=== PATIENT | female | born 1985 ===

== ENCOUNTER 2020-04-05 02:54 | Emergency (ER) ==
--- NOTE | 2020-04-05 04:54 | ER ---
Nurse's Notes [facility] Name: Geraldine Sotelo Age: 34 yrs Sex: Female : 1985 Arrival Date: 04/05/2020 Time: 03:02 Bed 17 Private MD: Diagnosis: Laceration without foreign body of vagina and vulva Presentation: 04/05 03:18 Chief complaint: Patient states: pt reports vaginal bleeding after intercourse, was sg taking a shower and having bright red clots, reports lower abdominal pain, as well as feeling weak. Coronavirus screen: Patient denies a cough. Patient denies shortness of breath or difficulty breathing. Patient denies measured and/or subjective temperature greater than 100.4F prior to today's visit. Patient denies travel on a cruise ship or to a country the [facility] currently lists as an affected area. Patient denies contact with known and/or suspected case of COVID-19. Ebola Screen: Patient negative for fever greater than or equal to 101.5 degrees Fahrenheit, and additional compatible Ebola Virus Disease symptoms Patient denies exposure to infectious person. Patient denies travel to an Ebola-affected area in the 21 days before illness onset. No symptoms or risks identified at this time. No acute neurological deficit is noted. Initial Sepsis Screen: Does the patient meet any 2 criteria? No. Patient's initial sepsis screen is negative. Does the patient have a suspected source of infection? No. Patient's initial sepsis screen is negative. Risk Assessment: Do you want to hurt yourself or someone else? Patient reports no desire to harm self or others. Onset of symptoms was April 05, 2020. Care prior to arrival: None. Transition of care: patient was not received from another setting of care. 03:18 Method Of Arrival: Wheelchair sg 03:18 Acuity: PROSPRE 3 sg HEARING EXAMINER: 04:00 LMP 03/15/2020 mt2 Historical: - Allergies: 03:27 Aspirin; sg - Home Meds: 03:27 None [Active]; sg - PMHx: 03:27 None; sg - PSHx: 03:27 ; sg - Immunization history:: Adult Immunizations not up to date. - Social history:: Smoking status: Patient denies any tobacco usage or history of. - Family history:: not pertinent. Screenin:00 Abuse screen: Denies threats or abuse. Nutritional screening: No deficits noted. mt2 Tuberculosis screening: No symptoms or risk factors identified. Fall Risk None identified. Assessment: 03:13 Reassessment: pt adamant that he go to the exam room with the patient. is alert sg and oriented, is answering her own questions appropriately, educated pt and pt family that there is no visitors in the dept at this time, pt states they will not be seen in the emergency dept at this time. 04:00 Reassessment: Patient and/or family updated on plan of care and expected duration. Pain mt2 level reassessed. PATIENT AWAITING PELVIC EXAM. General: Appears uncomfortable, Behavior is cooperative. Pain: Complains of pain in pelvis Pain currently is 4 out of 10 on a pain scale. Neuro: No deficits noted. Cardiovascular: No deficits noted. Respiratory: No deficits noted. GI: No deficits noted. : Blood noted Reports vaginal bleeding that is with clots. EENT: No deficits noted. Derm: Wound noted pelvis. Musculoskeletal: No deficits noted. 05:00 Reassessment: Patient and/or family updated on plan of care and expected duration. Pain mt2 level reassessed. Patient states symptoms have improved. General: Appears comfortable, Behavior is cooperative. Vital Signs: 03:23 BP 111 / 69; Pulse 85; Resp 17 S; Temp 98.7(O); Pulse Ox 100% on R/A; Weight 74.84 kg mw2 (R); Height 5 ft. 3 in. (160.02 cm) (R); 04:30 BP 118 / 71; Pulse 71; Resp 16; Pulse Ox 97% ; Pain 4/10; mt2 05:00 BP 108 / 69; Pulse 75; Resp 16; Temp 98.0(O); Pulse Ox 97% on R/A; Pain 0/10; mt2 03:23 Body Mass Index 29.23 (74.84 kg, 160.02 cm) mw2 ED Course: 03:02 Patient arrived in ED. cl3 03:18 Arm band placed on. sg 03:20 Keri Parr RN is Primary Nurse. mt2 03:20 Triage completed. sg 03:50 Mert Gong MD is Attending Physician. oliver 04:00 Patient has correct armband on for positive identification. Placed in gown. Bed in low mt2 position. Call light in reach. Side rails up X 1. 04:50 Assist provider with laceration repair on groin using sutures. Set up tray. Performed mt2 by Mert Gong MD Patient tolerated Assist provider with pelvic exam: Set up pelvic tray. Performed by Mert Gong MD Vaginal packing inserted. Patient did not have IV access during this emergency room visit. 04:53 Martine Garcia MD is Referral Physician. [facility] Administered Medications: 04:50 Drug: Lidocaine (1 %) 5 mg {Note: administered by md.} Route: Infiltration; mt2 05:39 CANCELLED ( cancel): NS 0.9% 1000 ml IV at 1 bolus Per protocol; 1000 mL bolus mt2 Outcome: 04:54 Discharge ordered by . [facility] 05:10 Discharged to home ambulatory. mt2 05:10 Condition: good 05:10 Discharge instructions given to patient, Instructed on discharge instructions, follow up and referral plans. medication usage, safe sex practices, safety practices, wound care, Demonstrated understanding of instructions, follow-up care, medications, wound care, Prescriptions given X 2. 05:49 Patient left the ED. mt2 Signatures: Alex Strong, RN Mert Cid MD MD cha Westbrook, MyKena mw2 Boyd Lewis cl3 Keri Parr, ANDER RN mt2
--- NOTE | 2020-04-05 04:54 | EDPHYS ---
Physician Documentation [facility] Name: Geraldine Sotelo Age: 34 yrs Sex: Female : 1985 Arrival Date: 04/05/2020 Time: 03:02 Bed 17 Private MD: ED Physician Mert Gong HPI: 04/05 04:20 This 34 yrs old Black Female presents to ER via Wheelchair with complaints of Weakness, oliver Abdominal Pain, Vaginal Bleeding. 04:20 The patient presents to the emergency department with weakness of the. oliver 04:21 The patient presents with pelvic pain, vaginal bleeding that is moderate, with clots. oliver Onset: The symptoms/episode began/occurred just prior to arrival. Modifying factors: The symptoms are alleviated by remaining still, the symptoms are aggravated by movement, sexual intercourse, walking. Associated signs and symptoms: The patient has no apparent associated signs or symptoms. Severity of symptoms: At their worst the symptoms were mild, moderate, in the emergency department the symptoms are unchanged. occurred during sex tonight. The patient is sexually active, reportedly has a single partner. Onset: The symptoms/episode began/occurred just prior to arrival. HIDE TANNER: 04:00 LMP 03/15/2020 mt2 Historical: - Allergies: 03:27 Aspirin; sg - Home Meds: 03:27 None [Active]; sg - PMHx: 03:27 None; sg - PSHx: 03:27 ; sg - Immunization history:: Adult Immunizations not up to date. - Social history:: Smoking status: Patient denies any tobacco usage or history of. - Family history:: not pertinent. ROS: 04:21 Constitutional: Negative for fever, chills, and weight loss, Eyes: Negative for injury, oliver pain, redness, and discharge, ENT: Negative for injury, pain, and discharge, Neck: Negative for injury, pain, and swelling, Cardiovascular: Negative for chest pain, palpitations, and edema, Respiratory: Negative for shortness of breath, cough, wheezing, and pleuritic chest pain, Abdomen/GI: Negative for abdominal pain, nausea, vomiting, diarrhea, and constipation, Back: Negative for injury and pain, MS/Extremity: Negative for injury and deformity, Skin: Negative for injury, rash, and discoloration, Neuro: Negative for headache, weakness, numbness, tingling, and seizure, Psych: Negative for depression, anxiety, suicide ideation, homicidal ideation, and hallucinations, Allergy/Immunology: Negative for hives, rash, and allergies, Endocrine: Negative for neck swelling, polydipsia, polyuria, polyphagia, and marked weight changes, Hematologic/Lymphatic: Negative for swollen nodes, abnormal bleeding, and unusual bruising. 04:21 : Positive for pelvic pain, vaginal bleeding. Exam: 04:21 Constitutional: This is a well developed, well nourished patient who is awake, alert, oliver and in no acute distress. Head/Face: Normocephalic, atraumatic. Eyes: Pupils equal round and reactive to light, extra-ocular motions intact. Lids and lashes normal. Conjunctiva and sclera are non-icteric and not injected. Cornea within normal limits. Periorbital areas with no swelling, redness, or edema. ENT: Nares patent. No nasal discharge, no septal abnormalities noted. Tympanic membranes are normal and external auditory canals are clear. Oropharynx with no redness, swelling, or masses, exudates, or evidence of obstruction, uvula midline. Mucous membranes moist. Neck: Trachea midline, no thyromegaly or masses palpated, and no cervical lymphadenopathy. Supple, full range of motion without nuchal rigidity, or vertebral point tenderness. No Meningismus. Chest/axilla: Normal chest wall appearance and motion. Nontender with no deformity. No lesions are appreciated. Cardiovascular: Regular rate and rhythm with a normal S1 and S2. No gallops, murmurs, or rubs. Normal PMI, no JVD. No pulse deficits. Respiratory: Lungs have equal breath sounds bilaterally, clear to auscultation and percussion. No rales, rhonchi or wheezes noted. No increased work of breathing, no retractions or nasal flaring. Abdomen/GI: Soft, non-tender, with normal bowel sounds. No distension or tympany. No guarding or rebound. No evidence of tenderness throughout. Back: No spinal tenderness. No costovertebral tenderness. Full range of motion. Skin: Warm, dry with normal turgor. Normal color with no rashes, no lesions, and no evidence of cellulitis. MS/ Extremity: Pulses equal, no cyanosis. Neurovascular intact. Full, normal range of motion. Neuro: Awake and alert, GCS 15, oriented to person, place, time, and situation. Cranial nerves II-XII grossly intact. Motor strength 5/5 in all extremities. Sensory grossly intact. Cerebellar exam normal. Normal gait. 04:49 : Pelvic Exam: External exam: is normal, Speculum exam: mild bleeding, no cervicitis, oliver os that is closed, proximal vaginal floor laceration, 2.5 cm. Vital Signs: 03:23 BP 111 / 69; Pulse 85; Resp 17 S; Temp 98.7(O); Pulse Ox 100% on R/A; Weight 74.84 kg mw2 (R); Height 5 ft. 3 in. (160.02 cm) (R); 04:30 BP 118 / 71; Pulse 71; Resp 16; Pulse Ox 97% ; Pain 4/10; mt2 05:00 BP 108 / 69; Pulse 75; Resp 16; Temp 98.0(O); Pulse Ox 97% on R/A; Pain 0/10; mt2 03:23 Body Mass Index 29.23 (74.84 kg, 160.02 cm) mw2 Laceration: 04:49 Wound Repair of 2.5cm ( 1.0in ) subcutaneous laceration to vaginal opening. Distal oliver neuro/vascular/tendon intact. Anesthesia: Local anesthetic administered with 6 mls of 1% lidocaine w/ Epi. Wound prep: Simple cleansing by me. Skin closed with 1 3-0 chromic using running sutures and sterile technique. Dressed with none. Patient tolerated well. MDM: 03:51 Patient medically screened. [facility] 04:24 Differential diagnosis: menometrorrhagia, menorrhea, nonspecific abdominal pain, oliver postcoital bleeding, urinary tract infection. Data reviewed: vital signs, nurses notes, lab test result(s). Data interpreted: hall monitor: rate is 85 beats/min, rhythm is regular. Counseling: I had a detailed discussion with the patient and/or guardian regarding: the historical points, exam findings, and any diagnostic results supporting the discharge/admit diagnosis, lab results, the need for outpatient follow up. 04:52 ED course: posterior vaginal wall 2.5 cm laceration, repair with running suture. [facility] 04/05 04:20 Order name: Pelvic Exam Setup; Complete Time: 05:39 oliver Administered Medications: 04:50 Drug: Lidocaine (1 %) 5 mg {Note: administered by } Route: Infiltration; mt2 05:39 CANCELLED ( cancel): NS 0.9% 1000 ml IV at 1 bolus Per protocol; 1000 mL bolus mt2 Disposition: 04/05/20 04:54 Discharged to Home. Impression: Laceration without foreign body of vagina and vulva. - Condition is Stable. - Discharge Instructions: Vaginal Laceration. - Prescriptions for Keflex 500 mg Oral Capsule - take 1 capsule by ORAL route every 6 hours for 7 days; 28 capsule. Tylenol- Codeine #3 300-30 mg Oral Tablet - take 2 tablets by ORAL route every 6 hours As needed; 20 tablet. - Medication Reconciliation Form, Thank You Letter, Antibiotic Education, Prescription Opioid Use form. - Follow up: Private Physician; When: 2 - 3 days; Reason: Recheck today's complaints, Continuance of care, Re-evaluation by your physician. Follow up: Martine Garcia MD; When: 2 - 3 days; Reason: Recheck today's complaints, Re-evaluation by your physician. - Problem is new. - Symptoms have improved. Signatures: Dispatcher [employer] EDMS Alex Strong RN RN sg Anderson, Corey, MD MD cha Toscano, Marlene, RN RN mt2 Corrections: (The following items were deleted from the chart) 05:39 04:26 NS 0.9% 1000 ml IV at 1 bolus Per protocol; 1000 mL bolus ordered. [place] [id number] 05:40 04:20 Urine Dipstick-Ancillary ordered. [place] [id number] 05:40 04:20 Urine Test ordered. [place] [id number] 05:49 04:54 04/05/2020 04:54 Discharged to Home. Impression: Laceration without foreign body mt2 of vagina and vulva. Condition is Stable. Forms are Medication Reconciliation Form, Thank You Letter, Antibiotic Education, Prescription Opioid Use. Follow up: Private Physician; When: 2 - 3 days; Reason: Recheck today's complaints, Continuance of care, Re-evaluation by your physician. Follow up: Martine Garcia; When: 2 - 3 days; Reason: Recheck today's complaints, Re-evaluation by your physician. Problem is new. Symptoms have improved. [facility]
[2020-04-05] MEDS ORDERED: LIDOCAINE 1% MPF 5 ML VIAL ONE (04:58)
[2020-04-05] MEDS ORDERED: LIDOCAINE 1% W/EPI 1:100,000 MDV 50 ML VIAL ONE (05:12)
== END 2020-04-05 05:49 | disposition home or self-care (01) ==
LOC: ER 02:54
PROC: 0HQ9XZZ Repair Perineum Skin, External Approach (ICD-10-PCS; principal; 2020-04-05)
DX: S31.41XA Laceration without foreign body of vagina and vulva, initial encounter (principal); Z88.6 Allergy status to analgesic agent
CPT/HCPCS: 99284